=== PATIENT | female | born 1970 ===

== ENCOUNTER 2020-01-27 12:39 | Emergency (ER) | payer OTHER ==
[~2020-01-27] VITALS: Ht 165.1 cm; Wt 59.0 kg
[2020-01-27] MEDS ORDERED: CIPRO500 MG (12:46)
[2020-01-27] MEDS ORDERED: SINGULAIR10 MG (12:46)
[2020-01-27] MEDS ORDERED: ADVAIR 100-501 EACH (12:46)
[2020-01-27] MEDS ORDERED: DAFLONEX-XL 11300 MG (12:47)
[2020-01-27] MEDS ORDERED: ACID REDUCER20 M1 (12:47)
[2020-01-27] MEDS ORDERED: [UNRECOGNIZED DRUG - OTHER] (12:48)
[2020-01-27] MEDS ORDERED: FLAGYL500MG PO (13:21)
== END 2020-01-27 14:47 | disposition home or self-care (01) ==
LOC: ER 12:39
DX: K61.0 Anal abscess (principal)

== ENCOUNTER 2020-03-01 06:00 | Day surgery (SDC) | payer OTHER ==
[~2020-03-01 06:00] MED LIST: ACID REDUCER20 M1; ADVAIR 100-501 EACH; CIPRO500 MG; DAFLONEX-XL 11300 MG; FLAGYL500MG PO; SINGULAIR10 MG; [UNRECOGNIZED DRUG - OTHER]
== END 2020-03-01 09:35 | disposition home or self-care (01) ==
LOC: AMB-ENDOS 06:00
PROVIDERS: ATTEND Surgery
DX: D12.0 Benign neoplasm of cecum (principal); D12.5 Benign neoplasm of sigmoid colon; K64.8 Other hemorrhoids; Z20.828 Contact with and (suspected) exposure to other viral communicable diseases

== ENCOUNTER → 2021-05-26 | Day surgery (SDC) | payer OTHER | END | disposition home or self-care (01) | LOC: ADM 05-22 12:45 → AMB-ENDOS 11:40 → CIR.AMB 12:45 | PROVIDERS: ATTEND Surgery | DX: K62.89 Other specified diseases of anus and rectum (principal); Z20.822 Contact with and (suspected) exposure to COVID-19 ==

== ENCOUNTER 2021-11-28 09:25 | Emergency (ER) | payer OTHER ==
[~2021-11-28] VITALS: Ht 165.1 cm; Wt 60.3 kg
[2021-11-28] MEDS ORDERED: ALDACTONE25 MG (10:15)
[2021-11-28] MEDS ORDERED: LASIX20 MG (10:16)
[2021-11-28] MEDS ORDERED: CARVEDILOL12.5 MG (10:16)
[2021-11-28] MEDS ORDERED: AVAPRO75 MG (10:17)
[2021-11-28] MEDS ORDERED: LUPRON DEPOT3.75 M1 (10:17)
== END 2021-11-28 16:05 ==
LOC: ER 09:25
DX: J10.1 Influenza due to other identified influenza virus with other respiratory manifestations (principal); Z20.822 Contact with and (suspected) exposure to COVID-19